=== PATIENT | male | born 1990 | race Caucasian/White ===

== ENCOUNTER 2019-03-06 12:12 | Emergency (ER) | payer SELFPAY ==
[~2019-03-06] VITALS: Ht 165.1 cm; Wt 59.0 kg
[2019-03-06 12:18] VITALS: Ht 165.1 cm; Wt 59.0 kg
[2019-03-06 14:07] VITALS: BP 125/74
== END 2019-03-06 14:07 | disposition other institution (70) ==
LOC: ED 12:12 → EDBD 12:12 → ED 14:07
DX: S63.601A Unspecified sprain of right thumb, initial encounter (principal); M25.532 Pain in left wrist; M25.531 Pain in right wrist; X58.XXXA Exposure to other specified factors, initial encounter; Y93.89 Activity, other specified; Y92.89 Other specified places as the place of occurrence of the external cause; Y99.8 Other external cause status
CPT/HCPCS: Q0092

== ENCOUNTER 2019-03-06 12:12 | Emergency (ER) | payer OTHER | END 2019-03-06 14:07 | disposition other institution (70) | LOC: ED 12:12 | DX: Z02.89 Encounter for other administrative examinations (principal) ==